=== PATIENT | male | born 1965 | race Caucasian/White ===

== ENCOUNTER 2016-11-13 10:11 | Emergency (ER) | payer OTHER ==
[~2016-11-13] VITALS: Ht 172.7 cm; Wt 73.5 kg
[~2016-11-13 10:11] MED LIST: AMLODIPINE BESY1 TAB PO; AMLODIPINE5 MG PO; ANAPROX DS550 MG PO; ASPIRIN ENTERIC81 M1 PO; CLEOCIN HCL150 MG PO; COLSALIDE IMPR0.6 MG PO; DAYPRO600 M1 PO; FENOFIBRATE160 MG PO; FLEXERIL10 MG PO; HYDROCODONE BIT1 T11 PO; INDOCIN25 MG PO; INDOCIN50 MG PO; KEFLEX500 MG PO; LEVOTHYROXINE0.1 M1 PO; LISINOPRIL10 MG PO; LISINOPRIL20 MG PO; LOPRESSOR25 MG PO; LOPURIN300 MG PO; Lopressor25 MG PO; MEDROL DOSEPAK4 MG PO; MOTRIN800 MG PO; NITROSTAT0.4 MG SL; NKHM; NORCO 325 MG-51 TAB PO; OYSTER SHELL C500 M2 PO; PARAFON FORTE500 MG PO; PRAVACHOL20 MG PO; PREDNISONE10 MG PO; ROBAXIN750 MG PO; SYNTHROID,LEV100 MCG PO; VICODIN 5/500 505 MG PO; VICODIN 500 MG-1 TAB PO; VITAMIN D2400 IU PO; ZESTRIL,PRINIVI10 MG PO; ZITHROMAX Z PA250 MG PO
[2016-11-13] MEDS ORDERED: AMLODIPINE BESY10 MG PO (10:27)
[2016-11-13] MEDS ORDERED: PREDNISONE10 MG PO (10:37)
[2016-11-13] MEDS ORDERED: 'PARAFON FORTE500 M1 PO (10:37)
== END 2016-11-13 14:19 | disposition home or self-care (01) ==
LOC: ED 10:11
DX: M54.41 Lumbago with sciatica, right side (principal); M19.90 Unspecified osteoarthritis, unspecified site; I10 Essential (primary) hypertension; F17.200 Nicotine dependence, unspecified, uncomplicated; M10.9 Gout, unspecified; Z98.890 Other specified postprocedural states; Z88.6 Allergy status to analgesic agent

== ENCOUNTER 2017-02-26 11:26 | Emergency (ER) | payer OTHER ==
[~2017-02-26] VITALS: Ht 172.7 cm; Wt 77.1 kg
[~2017-02-26 11:26] MED LIST changes: +'PARAFON FORTE500 M1 PO; +AMLODIPINE BESY10 MG PO
[2017-02-26] MEDS ORDERED: PERCOCET 325 MG1 TA6 PO (11:34)
[2017-02-26] MEDS ORDERED: MEDROL DOSEPAK4 MG PO (12:05)
== END 2017-02-26 11:36 | disposition home or self-care (01) ==
LOC: ED 11:26
DX: M75.52 Bursitis of left shoulder (principal); F17.200 Nicotine dependence, unspecified, uncomplicated; M19.90 Unspecified osteoarthritis, unspecified site; Z88.6 Allergy status to analgesic agent

== ENCOUNTER 2017-04-10 12:04 | Emergency (ER) | payer OTHER ==
[~2017-04-10] VITALS: Ht 172.7 cm; Wt 120.2 kg
[~2017-04-10 12:04] MED LIST changes: +PERCOCET 325 MG1 TA6 PO
[2017-04-10] MEDS ORDERED: 'PARAFON FORTE500 M1 PO (12:18)
[2017-04-10] MEDS ORDERED: PREDNISONE10 MG PO (12:18)
== END 2017-04-10 12:35 | disposition home or self-care (01) ==
LOC: ED 12:04
DX: M54.41 Lumbago with sciatica, right side (principal); I10 Essential (primary) hypertension; M19.90 Unspecified osteoarthritis, unspecified site; M10.9 Gout, unspecified; F17.200 Nicotine dependence, unspecified, uncomplicated; Z88.6 Allergy status to analgesic agent; Z79.899 Other long term (current) drug therapy

== ENCOUNTER 2017-09-19 20:42 | Emergency (ER) | payer OTHER ==
[~2017-09-19] VITALS: Ht 172.7 cm; Wt 81.6 kg
[2017-09-19 21:54] LABS: ALBUMIN 2.4 gm/dl (3.1-4.5); ALKALINE PHOSPHATASE 117 U/L (45-117); BUN 12 mg/dl (7-24); CHLORIDE 91 mmol/L (98-107); CREATININE 1.48 mg/dL (0.70-1.30); SODIUM 152 mmol/L (136-145); TOTAL PROTEIN 5.8 gm/dL (6.4-8.2)
[2017-09-19 22:05] LABS: SGOT/AST 3695 IU/L (3-35); SGPT/ALT 2024 U/L (12-78)
[2017-09-19 22:47] LABS: POTASSIUM 20.8 mmol/L (3.5-5.1)
== END 2017-09-20 01:45 | disposition expired ==
LOC: ED 20:42
PROVIDERS: Emergency Medicine Emergency Medical Services
DX: I46.9 Cardiac arrest, cause unspecified (principal); I16.1 Hypertensive emergency; F10.10 Alcohol abuse, uncomplicated